=== PATIENT | female | born 1985 | race Two or more races ===

== ENCOUNTER 2017-07-30 15:36 | Emergency (ER) | payer OTHER ==
[~2017-07-30] VITALS: Ht 149.9 cm; Wt 52.6 kg
[2017-07-30 16:00] VITALS: BP 118/78
== END 2017-07-30 16:32 | disposition home or self-care (01) ==
LOC: ER 15:54
DX: K04.7 Periapical abscess without sinus (principal); L03.211 Cellulitis of face
CPT/HCPCS: 99283; A4606; Z7610